=== PATIENT | female | born 1950 | race Two or more races ===

== ENCOUNTER 2017-01-20 23:13 | Emergency (ER) | payer MEDICAID, OTHER ==
[~2017-01-20] VITALS: Ht 170.2 cm; Wt 77.3 kg
[2017-01-20] MEDS ORDERED: SODIUM CHLORIDE 0.9% 500 ML IVB ONE (23:29)
[2017-01-20] MEDS ORDERED: HYDROmorphone HCL 2 MG/ML VL IV ONE (23:30)
[2017-01-20] MEDS ORDERED: ONDANSETRON HCL 4 MG/2 ML VIAL IV ONE (23:30)
[2017-01-21 00:09] LABS: Basophils # (auto) 0.1 uL; Basophils % (auto) 0.5 % (0.0-2.0); Eosinophils # (auto) 0 uL; Eosinophils % (auto) 0.2 % (0.0-7.0); Hemoglobin 10.6 g/dL (12.2-16.2); Lymphocytes # (auto) 1.3 uL; Lymphocytes % (auto) 7.1 % (10.0-50.0); Mean Corpuscular Hemoglobin 25.6 pg (28.0-32.0); Mean Corpuscular Hgb Conc. 32.1 g/dL (32.0-36.0); Mean Corpuscular Volume 79.8 fL (80.0-100.0); Mean Platelet Volume 8.6 fL (6.9-10.8); Monocytes # (auto) 0.4 uL; Monocytes % (auto) 2.2 % (0.0-12.0); Neutrophils # (auto) 16.3 uL; Platelet Count (auto) 308 10^3/uL (140-450); Red Cell Distribution Width 18.2 % (11.8-14.3); White Blood Cell 18.1 10^3/uL (4.4-10.8)
[2017-01-21 00:23] LABS: INR 1.13 (0.9-1.15); Partial Thromboplastin Time 28.2 sec (22.64-33.71); Prothrombin Time 12.3 sec (9.37-12.3)
[2017-01-21 00:27] LABS: Albumin 1.9 g/dL (3.4-5.0); BUN/Creatinine Ratio 18.2; Calcium 7.3 mg/dL (8.5-10.1); Magnesium 1.9 mg/dL (1.6-2.6); Potassium 3.4 mmol/L (3.5-5.1)
[2017-01-21 00:33] LABS: Bilirubin, Total 0.9 mg/dL (0.2-1.0); Total Protein 6.1 g/dL (6.4-8.2)
[2017-01-21] MEDS ORDERED: metroNIDAZOLE 500MG/100ML 100 ML IV ONE (01:45)
[2017-01-21] MEDS ORDERED: PIPERACILLIN-TAZOB 3.375GM 100 ML IV ONE (01:45)
[2017-01-21] MEDS ORDERED: SODIUM CHLORIDE 0.9% 1,000 ML IV ONE (02:00)
[2017-01-21] MEDS ORDERED: HYDROmorphone HCL 2 MG/ML VL IV ONE (02:45)
[2017-01-21 02:48] VITALS: BP 129/76
[2017-01-21 03:26] LABS: Urine Bilirubin Negative (Negative); Urine Blood Negative /uL (Negative); Urine Color Yellow (Yellow); Urine Glucose Normal (Normal); Urine Hyaline Cast FEW /lpf (0 - 2); Urine Ketone Negative (Negative); Urine Mucus FEW (None Seen); Urine Nitrite Negative (Negative); Urine RBC 1 /hpf (0 - 4); Urine Squamous Epithelial Cell FEW /hpf (<5); Urine pH 7.5 (5.0-8.0)
== END 2017-01-21 03:07 | disposition home or self-care (01) ==
LOC: EDBD 23:13 → ER 23:19
DX: K63.1 Perforation of intestine (nontraumatic) (principal); R10.84 Generalized abdominal pain
CPT/HCPCS: 36415; 74176; 76705; 80053; 81001; 82150; 83605; 83690; 83735; 84484; 85025; 85610; 85730; 93005; 96361; 96365; 96368; 96375; 96376; 99291; J1170; J2405; J2543; J3490; J7030

== ENCOUNTER 2018-03-25 13:09 | Emergency (ER) | payer MEDICAID ==
[~2018-03-25] VITALS: Ht 170.2 cm; Wt 77.6 kg
[2018-03-25 13:59] LABS: Basophils # (auto) 0 uL; Eosinophils # (auto) 0.1 uL; Hematocrit 39.6 % (36.0-46.0); Lymphocytes # (auto) 0.3 uL; Monocytes # (auto) 0.4 uL
[2018-03-25 14:02] LABS: Basophils % (auto) 0.6 % (0.0-2.0); Eosinophils % (auto) 2.1 % (0.0-7.0); Hemoglobin 12.9 g/dL (12.2-16.2); Lymphocytes % (auto) 4.2 % (10.0-50.0); Mean Corpuscular Hemoglobin 27.2 pg (28.0-32.0); Mean Corpuscular Hgb Conc. 32.6 g/dL (32.0-36.0); Mean Corpuscular Volume 83.4 fL (80.0-100.0); Monocytes % (auto) 6.9 % (0.0-12.0); Neutrophils # (auto) 5.6 uL; Neutrophils % (auto) 86.2 % (37.0-80.0); Nucleated Red Blood Cells % 0.1 %; Platelet Count (auto) 210 10^3/uL (140-450); Red Blood Cells 4.75 10^6/uL (4.0-5.20); Red Cell Distribution Width 16.3 % (11.8-14.3); White Blood Cell 6.5 10^3/uL (4.4-10.8)
[2018-03-25 14:06] LABS: Calcium 8.1 mg/dL (8.5-10.1); Potassium 3.7 mmol/L (3.5-5.1)
[2018-03-25 14:12] LABS: Albumin 2.8 g/dL (3.4-5.0); BUN/Creatinine Ratio 13.4; Bilirubin, Total 0.3 mg/dL (0.2-1.0); Total Protein 7.1 g/dL (6.4-8.2)
[2018-03-25] MEDS ORDERED: SODIUM CHLORIDE 0.9% 1,000 ML IV ONE (16:33)
[2018-03-25] MEDS ORDERED: FUROSEMIDE 40 MG/4 ML VIAL IV ONE (16:45)
[2018-03-25] MEDS ORDERED: SPIRONOLACTONE 25 MG TAB PO ONE (16:45)
[2018-03-25] MEDS ORDERED: IPRATROPIUM BROM 0.5 MG/2.5ML INH SOL NEB ONE (16:45)
[2018-03-25] MEDS ORDERED: ALBUTEROL SULF 2.5 MG/0.5ML(0.5%) NEB SOLN NEB ONE (16:45)
[2018-03-25 23:27] LABS: INR 1.01 (0.9-1.15); Partial Thromboplastin Time 31.4 sec (23.78-33.04); Prothrombin Time 10.8 sec (9.27-12.13)
[2018-03-26] MEDS ORDERED: IOHEXOL 350 MG/ML 100ML IJ ONE (01:39)
[2018-03-26] MEDS ORDERED: LEVOFLOXACIN 750MG 150 ML IV ONE (05:15)
[2018-03-26 07:28] VITALS: BP 112/62
== END 2018-03-26 08:23 | disposition home or self-care (01) ==
LOC: EDBD 13:09 → EDUNIT# 13:09 → ER 13:16
DX: J18.9 Pneumonia, unspecified organism (principal); R07.89 Other chest pain; J81.1 Chronic pulmonary edema; K74.60 Unspecified cirrhosis of liver; E03.9 Hypothyroidism, unspecified
CPT/HCPCS: 36415; 71045; 71275; 80053; 83735; 83880; 84443; 84484; 85025; 85379; 85610; 85730; 93005; 94640; 94761; 96365; 96366; 96375; 99284; J1940; J1956; J7030; J7611; J7644; Q9967

== ENCOUNTER 2018-04-15 20:34 | Emergency (ER) | payer MEDICAID, OTHER ==
[~2018-04-15] VITALS: Ht 165.1 cm; Wt 79.4 kg
[2018-04-15 22:12] LABS: Eosinophils # (auto) 0.1 uL; Hemoglobin 14.1 g/dL (12.2-16.2); Lymphocytes # (auto) 0.7 uL; Monocytes # (auto) 0.5 uL; Neutrophils # (auto) 9.8 uL
[2018-04-15 22:13] LABS: Basophils # (auto) 0 uL; Basophils % (auto) 0.4 % (0.0-2.0); Eosinophils % (auto) 0.8 % (0.0-7.0); Hematocrit 43.8 % (36.0-46.0); Lymphocytes % (auto) 6.1 % (10.0-50.0); Mean Corpuscular Hemoglobin 26.4 pg (28.0-32.0); Mean Corpuscular Hgb Conc. 32.3 g/dL (32.0-36.0); Mean Corpuscular Volume 81.6 fL (80.0-100.0); Monocytes % (auto) 4.7 % (0.0-12.0); Platelet Count (auto) 272 10^3/uL (140-450); Red Blood Cells 5.37 10^6/uL (4.0-5.20); Red Cell Distribution Width 16.7 % (11.8-14.3); White Blood Cell 11.2 10^3/uL (4.4-10.8)
[2018-04-15 22:28] LABS: Albumin 2.7 g/dL (3.4-5.0); Calcium 7.7 mg/dL (8.5-10.1); Magnesium 1.9 mg/dL (1.6-2.6); Potassium 3.7 mmol/L (3.5-5.1)
[2018-04-15 22:30] LABS: Lactic Acid w/Reflex 2.4 mmol/L (0.4-2.0)
[2018-04-15 22:30] LABS: BUN/Creatinine Ratio 18.2
[2018-04-15 22:34] LABS: Bilirubin, Total 0.4 mg/dL (0.2-1.0)
[2018-04-15 22:38] LABS: INR 1.02 (0.9-1.15); Partial Thromboplastin Time 28.7 sec (23.78-33.04); Prothrombin Time 10.9 sec (9.27-12.13)
[2018-04-16] MEDS ORDERED: IOHEXOL 350 MG/ML 100ML IJ ONE (00:47)
[2018-04-16] MEDS ORDERED: SODIUM CHLORIDE 0.9% 1,000 ML IV ONE (01:30)
[2018-04-16] MEDS ORDERED: ALBUMIN 5% 50 ML IV ONE (03:30)
[2018-04-16] MEDS ORDERED: HYDROCORTISONE SOD SUCC 100 MG/2ML INJ VIAL IV ONE (04:00)
[2018-04-16 07:08] VITALS: BP 110/65
== END 2018-04-16 07:20 | disposition short-term general hospital (02) ==
LOC: EDBD 20:34 → ER 20:41
DX: J44.1 Chronic obstructive pulmonary disease with (acute) exacerbation (principal); D72.829 Elevated white blood cell count, unspecified; R79.89 Other specified abnormal findings of blood chemistry; E07.89 Other specified disorders of thyroid
CPT/HCPCS: 36415; 71045; 71275; 80053; 83605; 83735; 83880; 84484; 85025; 85379; 85610; 85730; 87040; 93005; 96365; 96375; 99285; J1720; J7030; P9041; Q9967

== ENCOUNTER 2018-11-14 15:40 | Emergency (ER) | payer OTHER ==
[~2018-11-14] VITALS: Ht 170.2 cm; Wt 76.7 kg
[2018-11-14] MEDS ORDERED: MORPHINE SULF INJ 2 MG/ML SYRINGE 1ML IV ONE ×2 (16:30→21:30)
[2018-11-14] MEDS ORDERED: ONDANSETRON HCL 4 MG/2 ML VIAL IV ONE (16:30)
[2018-11-14 16:58] LABS: Basophils # (auto) 0 uL; Basophils % (auto) 0.7 % (0.0-2.0); Eosinophils # (auto) 0.4 uL; Eosinophils % (auto) 6.5 % (0.0-7.0); Hematocrit 37.4 % (36.0-46.0); Hemoglobin 11.9 g/dL (12.2-16.2); Lymphocytes # (auto) 0.9 uL; Lymphocytes % (auto) 14.3 % (10.0-50.0); Mean Corpuscular Hemoglobin 25.3 pg (28.0-32.0); Mean Corpuscular Hgb Conc. 31.8 g/dL (32.0-36.0); Mean Corpuscular Volume 79.5 fL (80.0-100.0); Monocytes # (auto) 0.4 uL; Monocytes % (auto) 6.2 % (0.0-12.0); Neutrophils # (auto) 4.6 uL; Neutrophils % (auto) 72.3 % (37.0-80.0); Nucleated Red Blood Cells % 0.1 %; Platelet Count (auto) 206 10^3/uL (140-450); Red Cell Distribution Width 15.5 % (11.8-14.3); White Blood Cell 6.3 10^3/uL (4.4-10.8)
[2018-11-14 17:22] LABS: Anion Gap 9 (5-15); BUN/Creatinine Ratio 13.2; Blood Urea Nitrogen 9 mg/dL (7-18); Calcium 8.7 mg/dL (8.5-10.1); Carbon Dioxide 24 mmol/L (21-32); Chloride 111 mmol/L (98-107); GFR African American 111 mL/min; GFR Non-African American 92 mL/min; Glucose 103 mg/dL (74-106); Potassium 3.9 mmol/L (3.5-5.1); Sodium 144 mmol/L (136-145)
[2018-11-14 17:27] LABS: Alanine Aminotransferase 19 U/L (13-56); Alkaline Phosphatase 126 U/L (45-117); Aspartate Aminotransferase 27 U/L (15-37); Bilirubin, Total 0.2 mg/dL (0.2-1.0); Total Protein 6.6 g/dL (6.4-8.2)
[2018-11-14 18:44] LABS: INR 1.01 (0.9-1.15); Partial Thromboplastin Time 27.9 sec (23.64-32.05)
[2018-11-14] MEDS ORDERED: IOHEXOL 350 MG/ML 100ML IJ ONE (21:03)
[2018-11-14] MEDS ORDERED: PROMETHAZINE HCL 25 MG/ML 1ML IV ONE (21:30)
[2018-11-14] MEDS ORDERED: cefTRIAXone 1GM/50ML D5W 50 ML IV ONE (22:30)
[2018-11-15 03:20] VITALS: BP 117/47
== END 2018-11-15 03:40 | disposition short-term general hospital (02) ==
LOC: EDBD 15:40 → ER 15:40
DX: J18.9 Pneumonia, unspecified organism (principal); K74.60 Unspecified cirrhosis of liver; K21.9 Gastro-esophageal reflux disease without esophagitis; E07.9 Disorder of thyroid, unspecified; Z88.8 Allergy status to other drugs, medicaments and biological substances
CPT/HCPCS: 36415; 71045; 71275; 80053; 83605; 83735; 83880; 84484; 85025; 85379; 85610; 85730; 87040; 93005; 94761; 96365; 96375; 96376; 99291; J0696; J2270; J2405; J2550; Q9967

== ENCOUNTER 2019-02-04 15:59 | Emergency (ER) | payer OTHER ==
[~2019-02-04] VITALS: Ht 154.9 cm; Wt 76.2 kg
[2019-02-04 18:04] LABS: Basophils # (auto) 0 uL; Eosinophils # (auto) 0.1 uL; Hemoglobin 12.4 g/dL (12.2-16.2); Lymphocytes # (auto) 0.8 uL; Monocytes # (auto) 0.2 uL
[2019-02-04 18:06] LABS: Basophils % (auto) 0.6 % (0.0-2.0); Eosinophils % (auto) 0.8 % (0.0-7.0); Hematocrit 39.1 % (36.0-46.0); Lymphocytes % (auto) 8.5 % (10.0-50.0); Mean Corpuscular Hemoglobin 24.9 pg (28.0-32.0); Mean Corpuscular Hgb Conc. 31.8 g/dL (32.0-36.0); Mean Corpuscular Volume 78.5 fL (80.0-100.0); Neutrophils # (auto) 7.9 uL; Neutrophils % (auto) 88.1 % (37.0-80.0); Nucleated Red Blood Cells % 0.1 %; Platelet Count (auto) 205 10^3/uL (140-450); Red Blood Cells 4.98 10^6/uL (4.0-5.20); Red Cell Distribution Width 15.7 % (11.8-14.3); White Blood Cell 8.9 10^3/uL (4.4-10.8)
[2019-02-04 18:13] LABS: Albumin 3.1 g/dL (3.4-5.0); Anion Gap 10 (5-15); BUN/Creatinine Ratio 16.7; Blood Urea Nitrogen 12 mg/dL (7-18); Calcium 8.4 mg/dL (8.5-10.1); Carbon Dioxide 21 mmol/L (21-32); Chloride 109 mmol/L (98-107); GFR African American 104 mL/min; GFR Non-African American 86 mL/min; Glucose 129 mg/dL (74-106); Potassium 3.7 mmol/L (3.5-5.1); Sodium 140 mmol/L (136-145)
[2019-02-04 18:18] LABS: Alanine Aminotransferase 30 U/L (13-56); Alkaline Phosphatase 160 U/L (45-117); Aspartate Aminotransferase 45 U/L (15-37); Bilirubin, Total 0.2 mg/dL (0.2-1.0); Total Protein 7.5 g/dL (6.4-8.2)
[2019-02-04 19:33] LABS: INR 0.97 (0.9-1.15); Partial Thromboplastin Time 29.3 sec (23.64-32.05)
[2019-02-04 19:49] LABS: Urine Bacteria NONE SEEN /hpf (None Seen); Urine Blood Negative /uL (Negative); Urine Mucus FEW (None Seen); Urine Specific Gravity 1.018 (1.001-1.035); Urine WBC 3 /hpf (0 - 5)
[2019-02-04] MEDS ORDERED: cefTRIAXone 1GM/50ML D5W 50 ML IV ONE (20:45)
[2019-02-04 21:14] VITALS: BP 110/50
== END 2019-02-04 21:20 | disposition home or self-care (01) ==
LOC: ER 15:59 → EDBD 15:59 → ER 21:20
DX: J44.1 Chronic obstructive pulmonary disease with (acute) exacerbation (principal); J20.9 Acute bronchitis, unspecified; Z90.710 Acquired absence of both cervix and uterus
CPT/HCPCS: 36415; 71045; 80053; 81001; 83605; 83880; 84484; 85025; 85379; 85610; 85730; 87040; 93005; 96365; 99284; J0696

== ENCOUNTER 2021-01-03 10:22 | Inpatient (IN) | payer OTHER ==
[~2021-01-03] VITALS: Ht 170.2 cm; Wt 75.5 kg
[2021-01-03 11:15] LABS: Basophils # (auto) 0 10 ^3/uL (0-0.2); Basophils % (auto) 0.1 % (0.0-2.0); Eosinophils # (auto) 0.1 10 ^3/uL (0-0.8); Eosinophils % (auto) 0.8 % (0.0-7.0); Hematocrit 39.8 % (36.0-46.0); Hemoglobin 12.3 g/dL (12.2-16.2); Lymphocytes # (auto) 1.6 10 ^3/uL (0.4-5.4); Mean Corpuscular Hemoglobin 23.1 pg (28.0-32.0); Mean Corpuscular Volume 74.7 fL (80.0-100.0); Monocytes # (auto) 0.7 10 ^3/uL (0-1.3); Neutrophils # (auto) 10.1 10 ^3/uL (1.6-8.6); Neutrophils % (auto) 80.1 % (37.0-80.0); Red Blood Cells 5.33 10^6/uL (4.0-5.20); White Blood Cell 12.6 10^3/uL (4.4-10.8)
[2021-01-03 11:35] LABS: Albumin 2.7 g/dL (3.4-5.0); Calcium 7.7 mg/dL (8.5-10.1); Potassium 3.7 mmol/L (3.5-5.1)
[2021-01-03 11:41] LABS: BUN/Creatinine Ratio 28.8; Bilirubin, Total 0.3 mg/dL (0.2-1.0); Total Protein 5.7 g/dL (6.4-8.2)
[2021-01-03 12:00] LABS: Lactic Acid w/Reflex 3.1 mmol/L (0.4-2.0)
[2021-01-03] MEDS ORDERED: cefTRIAXone 1GM/50ML D5W 50 ML IV ONE (14:45)
[2021-01-03] MEDS ORDERED: ACETAMINOPHEN 500 MG TAB PO PRN (15:45)
[2021-01-03] MEDS ORDERED: IPRATROPIUM BROM 0.5 MG/2.5ML INH SOL NEB PRN (15:45)
[2021-01-03] MEDS ORDERED: SODIUM CHLORIDE 0.9% 1,000 ML IV ONE (15:45)
[2021-01-03] MEDS ORDERED: MORPHINE SULFATE INJECTION 2 MG/ML SYRG IV PRN ×2 (15:45)
[2021-01-03] MEDS ORDERED: NITROGLYCERIN 0.4 MG SL TAB SL PRN (15:45)
[2021-01-03] MEDS ORDERED: HYDROcodone-ACET 5/325MG TAB PO PRN (15:45)
[2021-01-03] MEDS ORDERED: ALBUTEROL SULF 2.5 MG/0.5ML(0.5%) NEB SOLN NEB PRN (15:45)
[2021-01-03] MEDS ORDERED: ONDANSETRON HCL 4 MG/2 ML VIAL IV PRN (15:45)
[2021-01-03] MEDS ORDERED: IOHEXOL 300 MG/ML 100ML BOTTLE IJ ONE (15:49)
[2021-01-03] MEDS ORDERED: IPRATROPIUM BROM 0.5 MG/2.5ML INH SOL NEB SCH (18:00)
[2021-01-03] MEDS ORDERED: ALBUTEROL SULF 2.5 MG/0.5ML(0.5%) NEB SOLN NEB SCH (18:00)
[2021-01-03] MEDS: PIPERACILLIN-TAZOB 3.375GM 100 ML IV SCH (22:46)
[2021-01-04] VITALS (8 sets, daily range): BP systolic 109–115; BP diastolic 70–80
[2021-01-04] MEDS ORDERED: ALBUTEROL SULF HFA 90MCG INH 200DOSE IN SCH (06:00)
[2021-01-04] MEDS ORDERED: ALBUTEROL SULF HFA 90MCG INH 200DOSE IN PRN (06:15)
[2021-01-04] MEDS: PIPERACILLIN-TAZOB 3.375GM 100 ML IV SCH ×4 (07:48→21:12)
[2021-01-04] MEDS ORDERED: DEXTROSE (50%) 50ML SYRG IV PRN (10:45)
[2021-01-04] MEDS ORDERED: LORazepam 2MG/ML-1ML VIAL IV PRN ×2 (10:45→22:00)
[2021-01-04] MEDS ORDERED: LORazepam 2MG/ML-1ML VIAL IV ONE ×2 (10:45)
[2021-01-04] MEDS ORDERED: methylPREDNISolone SOD SUCC 125 MG/2 ML VL IV ONE (10:45)
[2021-01-04] MEDS ORDERED: CHOLECALCIFEROL (VITD3) 2,000 UNIT CAP/TAB PO ONE (10:45)
[2021-01-04] MEDS: ACCU-CHEK COMFORT CURVE STRIP VI SCH ×3 (11:53→21:12)
[2021-01-04] MEDS: InsuLIN REG 1unit/0.01ml Soln (100units/ml) SC SCH ×4 (11:55→21:30)
[2021-01-04] MEDS: methylPREDNISolone SOD SUCC 40 MG/ML VL IV SCH ×2 (14:00→21:12)
[2021-01-04] MEDS: BUDESONIDE (INHALATION) 180 MCG IH IN SCH (19:01)
[2021-01-04] MEDS: IPRATROPIUM BROM 0.5 MG/2.5ML INH SOL NEB SCH (19:01)
[2021-01-04] MEDS: ALBUTEROL SULF 2.5 MG/0.5ML(0.5%) NEB SOLN NEB SCH (19:01)
[2021-01-05 05:15] LABS: Basophils # (auto) 0 10 ^3/uL (0-0.2); Eosinophils # (auto) 0 10 ^3/uL (0-0.8); Lymphocytes # (auto) 0.8 10 ^3/uL (0.4-5.4); Monocytes # (auto) 0.1 10 ^3/uL (0-1.3); Neutrophils % (auto) 91.7 % (37.0-80.0); White Blood Cell 10.7 10^3/uL (4.4-10.8)
[2021-01-05] MEDS: methylPREDNISolone SOD SUCC 40 MG/ML VL IV SCH (05:28)
[2021-01-05] MEDS: PIPERACILLIN-TAZOB 3.375GM 100 ML IV SCH ×3 (05:28→21:30)
[2021-01-05 05:30] VITALS: BP 115/77
[2021-01-05 05:41] LABS: Calcium 8.6 mg/dL (8.5-10.1); Potassium 4.9 mmol/L (3.5-5.1)
[2021-01-05 05:43] LABS: BUN/Creatinine Ratio 28.4
[2021-01-05] MEDS: ALBUTEROL SULF 2.5 MG/0.5ML(0.5%) NEB SOLN NEB SCH ×3 (06:06→18:11)
[2021-01-05] MEDS: IPRATROPIUM BROM 0.5 MG/2.5ML INH SOL NEB SCH ×3 (06:07→18:11)
[2021-01-05 06:08] LABS: Hematocrit 40.6 % (36.0-46.0); Hemoglobin 13.3 g/dL (12.2-16.2); Lymphocytes % (auto) 7.3 % (10.0-50.0); Mean Corpuscular Hemoglobin 24.8 pg (28.0-32.0); Mean Corpuscular Hgb Conc. 32.7 g/dL (32.0-36.0); Mean Corpuscular Volume 75.7 fL (80.0-100.0); Neutrophils # (auto) 9.9 10 ^3/uL (1.6-8.6); Nucleated Red Blood Cells % 0.1 %; Red Blood Cells 5.37 10^6/uL (4.0-5.20); Red Cell Distribution Width 18.2 % (11.8-14.3)
[2021-01-05] MEDS: ACCU-CHEK COMFORT CURVE STRIP VI SCH ×4 (06:41→21:30)
[2021-01-05] MEDS: InsuLIN REG 1unit/0.01ml Soln (100units/ml) SC SCH ×4 (06:42→21:53)
[2021-01-05 08:00] VITALS: BP 98/66
[2021-01-05 09:06] VITALS: BP 98/66
[2021-01-05] MEDS: CHOLECALCIFEROL (VITD3) 2,000 UNIT CAP/TAB PO SCH (09:14)
[2021-01-05] MEDS: PANTOPRAZOLE 40 MG TAB PO SCH (09:14)
[2021-01-05] MEDS: BUDESONIDE (INHALATION) 180 MCG IH IN SCH (10:00)
[2021-01-05] MEDS ORDERED: BUDESONIDE (INHALATION) 0.5 MG/2 ML NEB ONE (11:44)
[2021-01-05] MEDS: LORazepam 0.5 MG TAB PO PRN ×2 (12:27→21:49)
[2021-01-05 13:00] VITALS: BP 97/68
[2021-01-05] MEDS ORDERED: traMADol HCL 50 MG TAB PO ONE (13:30)
[2021-01-05 13:44] LABS: Urine Bacteria FEW /hpf (None Seen); Urine Blood 1+ /uL (Negative); Urine Mucus FEW (None Seen); Urine Specific Gravity 1.027 (1.001-1.035); Urine WBC 4 /hpf (0 - 5)
[2021-01-05 16:43] VITALS: BP 93/56
[2021-01-05] MEDS: metFORMIN HYDROCHLORIDE 500 MG TAB PO SCH (17:33)
[2021-01-05] MEDS: Glucerna Carbsteady SHAKE Vanilla 8oz PO SCH (17:45)
[2021-01-05] MEDS ORDERED: Ensure HIGH Protein Chocolate 8oz Bottle PO SCH (18:00)
[2021-01-05] MEDS: BUDESONIDE (INHALATION) 0.5 MG/2 ML NEB NEB SCH (18:11)
[2021-01-05 22:00] VITALS: BP 98/62
[2021-01-06 05:00] VITALS: BP 93/56
[2021-01-06] MEDS: ACCU-CHEK COMFORT CURVE STRIP VI SCH ×4 (05:52→22:20)
[2021-01-06] MEDS: PIPERACILLIN-TAZOB 3.375GM 100 ML IV SCH ×3 (05:53→22:22)
[2021-01-06] MEDS: ALBUTEROL SULF 2.5 MG/0.5ML(0.5%) NEB SOLN NEB SCH ×3 (06:02→18:03)
[2021-01-06] MEDS: IPRATROPIUM BROM 0.5 MG/2.5ML INH SOL NEB SCH ×3 (06:02→18:03)
[2021-01-06] MEDS: InsuLIN REG 1unit/0.01ml Soln (100units/ml) SC SCH ×4 (06:08→22:22)
[2021-01-06] MEDS: BUDESONIDE (INHALATION) 0.5 MG/2 ML NEB NEB SCH ×2 (06:20→18:03)
[2021-01-06 09:00] VITALS: BP 105/66
[2021-01-06] MEDS: predniSONE 20 MG TAB PO SCH (09:10)
[2021-01-06] MEDS: metFORMIN HYDROCHLORIDE 500 MG TAB PO SCH ×2 (09:11→17:56)
[2021-01-06] MEDS: PANTOPRAZOLE 40 MG TAB PO SCH (09:11)
[2021-01-06] MEDS: CHOLECALCIFEROL (VITD3) 2,000 UNIT CAP/TAB PO SCH (09:11)
[2021-01-06] MEDS: LORazepam 0.5 MG TAB PO PRN ×2 (09:15→19:51)
[2021-01-06] MEDS: Glucerna Carbsteady SHAKE Vanilla 8oz PO SCH ×3 (09:15→19:16)
[2021-01-06 13:00] VITALS: BP 96/66
[2021-01-06] MEDS ORDERED: PRE5T PO (15:49)
[2021-01-06] MEDS ORDERED: INSREG3 IV (15:49)
[2021-01-06] MEDS ORDERED: OMEP20TA PO (15:50)
[2021-01-06] MEDS ORDERED: ALBU108A5 IN (15:50)
[2021-01-06] MEDS ORDERED: MYCO500T PO (15:50)
[2021-01-06] MEDS ORDERED: GUAI100S6 PO (15:50)
[2021-01-06] MEDS ORDERED: METF-370 PO (15:50)
[2021-01-06] MEDS ORDERED: FLUT250M2 INH (15:50)
[2021-01-06] MEDS ORDERED: LEVO50TA7 PO (15:50)
[2021-01-06] MEDS ORDERED: URSO1TAB7 PO (15:50)
[2021-01-06] MEDS ORDERED: IPRIH INH (15:50)
[2021-01-06] MEDS ORDERED: TACR1GRA PO (15:50)
[2021-01-06] MEDS ORDERED: BENZ100C97 PO (15:50)
[2021-01-06] MEDS ORDERED: NALO4SPR2 (15:50)
[2021-01-06 17:12] VITALS: BP 90/60
[2021-01-06 22:00] VITALS: BP 108/72
[2021-01-06] MEDS: MYCOPHENOLATE 500 MG TAB PO SCH (22:22)
[2021-01-06] MEDS: TACROLIMUS 1 MG CAP PO SCH (22:22)
[2021-01-07 05:00] VITALS: BP 103/71
[2021-01-07 05:12] LABS: Basophils # (auto) 0 10 ^3/uL (0-0.2); Basophils % (auto) 0.1 % (0.0-2.0); Eosinophils # (auto) 0.1 10 ^3/uL (0-0.8); Eosinophils % (auto) 0.4 % (0.0-7.0); Hematocrit 41.9 % (36.0-46.0); Hemoglobin 13.2 g/dL (12.2-16.2); Lymphocytes # (auto) 1.7 10 ^3/uL (0.4-5.4); Mean Corpuscular Hemoglobin 23.6 pg (28.0-32.0); Mean Corpuscular Hgb Conc. 31.6 g/dL (32.0-36.0); Mean Corpuscular Volume 74.9 fL (80.0-100.0); Monocytes # (auto) 0.8 10 ^3/uL (0-1.3); Monocytes % (auto) 4.8 % (0.0-12.0); Neutrophils # (auto) 13.2 10 ^3/uL (1.6-8.6); Neutrophils % (auto) 83.7 % (37.0-80.0); Red Cell Distribution Width 18.2 % (11.8-14.3); White Blood Cell 15.8 10^3/uL (4.4-10.8)
[2021-01-07 05:31] LABS: Potassium 4.2 mmol/L (3.5-5.1)
[2021-01-07 05:42] LABS: Albumin 2.7 g/dL (3.4-5.0); BUN/Creatinine Ratio 30.2; Bilirubin, Total 0.3 mg/dL (0.2-1.0); Calcium 9.1 mg/dL (8.5-10.1); Total Protein 5.9 g/dL (6.4-8.2)
[2021-01-07] MEDS: PIPERACILLIN-TAZOB 3.375GM 100 ML IV SCH ×3 (06:05→22:20)
[2021-01-07] MEDS: BUDESONIDE (INHALATION) 0.5 MG/2 ML NEB NEB SCH ×2 (06:06→18:19)
[2021-01-07] MEDS: ALBUTEROL SULF 2.5 MG/0.5ML(0.5%) NEB SOLN NEB SCH ×3 (06:06→18:19)
[2021-01-07] MEDS: IPRATROPIUM BROM 0.5 MG/2.5ML INH SOL NEB SCH ×3 (06:06→18:19)
[2021-01-07] MEDS: ACCU-CHEK COMFORT CURVE STRIP VI SCH ×4 (06:14→22:00)
[2021-01-07] MEDS: InsuLIN REG 1unit/0.01ml Soln (100units/ml) SC SCH ×4 (06:39→22:20)
[2021-01-07] MEDS: metFORMIN HYDROCHLORIDE 500 MG TAB PO SCH ×2 (08:59→18:15)
[2021-01-07] MEDS: PANTOPRAZOLE 40 MG TAB PO SCH (08:59)
[2021-01-07] MEDS: predniSONE 20 MG TAB PO SCH (08:59)
[2021-01-07 09:00] VITALS: BP 93/62
[2021-01-07] MEDS: TACROLIMUS 1 MG CAP PO SCH ×2 (09:00→22:00)
[2021-01-07] MEDS: CHOLECALCIFEROL (VITD3) 2,000 UNIT CAP/TAB PO SCH (09:00)
[2021-01-07] MEDS: MYCOPHENOLATE 500 MG TAB PO SCH ×2 (09:00→22:00)
[2021-01-07] MEDS: Glucerna Carbsteady SHAKE Vanilla 8oz PO SCH ×3 (09:01→18:15)
[2021-01-07] MEDS: LORazepam 0.5 MG TAB PO PRN ×2 (09:06→19:29)
[2021-01-07 12:48] VITALS: BP 100/71
[2021-01-07] MEDS ORDERED: VANCOMYCIN PER PHARMACY 0 MG IV SCH (13:45)
[2021-01-07] MEDS: VANCOMYCIN 750mg/250ml 250 ML IV SCH (15:52)
[2021-01-07 17:01] VITALS: BP 89/58
[2021-01-07 23:37] VITALS: BP 107/66
[2021-01-08 02:15] LABS: Hemoglobin 13.2 g/dL (12.2-16.2); White Blood Cell 15.2 10^3/uL (4.4-10.8)
[2021-01-08 02:17] LABS: Basophils # (auto) 0 10 ^3/uL (0-0.2); Basophils % (auto) 0.1 % (0.0-2.0); Eosinophils # (auto) 0 10 ^3/uL (0-0.8); Eosinophils % (auto) 0.2 % (0.0-7.0); Hematocrit 41.3 % (36.0-46.0); Lymphocytes # (auto) 1.2 10 ^3/uL (0.4-5.4); Lymphocytes % (auto) 7.9 % (10.0-50.0); Mean Corpuscular Hemoglobin 24.2 pg (28.0-32.0); Mean Corpuscular Volume 75.5 fL (80.0-100.0); Monocytes # (auto) 0.6 10 ^3/uL (0-1.3); Monocytes % (auto) 4.3 % (0.0-12.0); Neutrophils # (auto) 13.3 10 ^3/uL (1.6-8.6); Neutrophils % (auto) 87.5 % (37.0-80.0); Red Blood Cells 5.47 10^6/uL (4.0-5.20); Red Cell Distribution Width 18.3 % (11.8-14.3)
[2021-01-08] MEDS: VANCOMYCIN 750mg/250ml 250 ML IV SCH ×2 (03:00→15:00)
[2021-01-08 05:14] LABS: Basophils # (auto) 0 10 ^3/uL (0-0.2); Lymphocytes # (auto) 1.4 10 ^3/uL (0.4-5.4); Lymphocytes % (auto) 10.3 % (10.0-50.0); Monocytes % (auto) 4.7 % (0.0-12.0); Nucleated Red Blood Cells % 0.1 %; White Blood Cell 13.8 10^3/uL (4.4-10.8)
[2021-01-08 05:21] VITALS: BP 119/80
[2021-01-08 05:21] LABS: Eosinophils # (auto) 0 10 ^3/uL (0-0.8); Eosinophils % (auto) 0.3 % (0.0-7.0); Hematocrit 41.1 % (36.0-46.0); Mean Corpuscular Hemoglobin 24.1 pg (28.0-32.0); Mean Corpuscular Hgb Conc. 31.6 g/dL (32.0-36.0); Mean Corpuscular Volume 76.2 fL (80.0-100.0); Monocytes # (auto) 0.6 10 ^3/uL (0-1.3); Neutrophils # (auto) 11.7 10 ^3/uL (1.6-8.6); Neutrophils % (auto) 84.7 % (37.0-80.0); Red Blood Cells 5.39 10^6/uL (4.0-5.20)
[2021-01-08 05:26] LABS: BUN/Creatinine Ratio 27.4; Calcium 8.5 mg/dL (8.5-10.1); Potassium 4.1 mmol/L (3.5-5.1)
[2021-01-08] MEDS: BUDESONIDE (INHALATION) 0.5 MG/2 ML NEB NEB SCH ×2 (06:00→18:31)
[2021-01-08] MEDS: PIPERACILLIN-TAZOB 3.375GM 100 ML IV SCH ×2 (06:00→17:00)
[2021-01-08] MEDS: ALBUTEROL SULF 2.5 MG/0.5ML(0.5%) NEB SOLN NEB SCH ×3 (06:01→18:31)
[2021-01-08] MEDS: IPRATROPIUM BROM 0.5 MG/2.5ML INH SOL NEB SCH ×3 (06:01→18:31)
[2021-01-08] MEDS: ACCU-CHEK COMFORT CURVE STRIP VI SCH ×3 (06:28→18:55)
[2021-01-08] MEDS: InsuLIN REG 1unit/0.01ml Soln (100units/ml) SC SCH ×3 (06:28→18:55)
[2021-01-08 08:30] VITALS: BP 96/68
[2021-01-08] MEDS: metFORMIN HYDROCHLORIDE 500 MG TAB PO SCH ×2 (08:49→18:55)
[2021-01-08] MEDS: Glucerna Carbsteady SHAKE Vanilla 8oz PO SCH ×3 (08:49→17:55)
[2021-01-08 09:00] VITALS: BP 98/71
[2021-01-08] MEDS: predniSONE 20 MG TAB PO SCH (09:11)
[2021-01-08] MEDS: CHOLECALCIFEROL (VITD3) 2,000 UNIT CAP/TAB PO SCH (09:12)
[2021-01-08] MEDS: PANTOPRAZOLE 40 MG TAB PO SCH (09:12)
[2021-01-08] MEDS: TACROLIMUS 1 MG CAP PO SCH (11:58)
[2021-01-08] MEDS: MYCOPHENOLATE 500 MG TAB PO SCH (11:58)
[2021-01-08 13:00] VITALS: BP 112/74
[2021-01-08 16:20] VITALS: BP 112/74
[2021-01-08 17:00] VITALS: BP 117/77
== END 2021-01-08 20:34 | disposition home health service (06) | DRG 871 ==
LOC: EDBD 10:22 → ER 10:22 → TELE 15:38 → TELE-EAST 01-04 04:44 → TELE-CENTR 01-04 15:28
PROVIDERS: ADMIT Nurse Practitioner Acute Care; ATTEND Internal Medicine
DX: A41.9 Sepsis, unspecified organism (principal); J96.00 Acute respiratory failure, unspecified whether with hypoxia or hypercapnia; E44.0 Moderate protein-calorie malnutrition; J84.9 Interstitial pulmonary disease, unspecified; E03.9 Hypothyroidism, unspecified; F32.9 Major depressive disorder, single episode, unspecified; E11.65 Type 2 diabetes mellitus with hyperglycemia; K21.9 Gastro-esophageal reflux disease without esophagitis; R16.1 Splenomegaly, not elsewhere classified; Z20.822 Contact with and (suspected) exposure to COVID-19; F41.9 Anxiety disorder, unspecified; I48.91 Unspecified atrial fibrillation; K74.60 Unspecified cirrhosis of liver; Z87.01 Personal history of pneumonia (recurrent); Z90.710 Acquired absence of both cervix and uterus; Z88.1 Allergy status to other antibiotic agents; Z68.26 Body mass index [BMI] 26.0-26.9, adult
CPT/HCPCS: 36415; 71045; 71250; 80048; 80053; 81001; 82728; 82962; 83036; 83605; 84443; 84484; 85025; 85652; 86141; 87040; 87081; 87426; 93005; 94640; 96365; 97110; 97116; 97530; 99291; G0378; J0696; J1815; J2543; J7507; J7517

== ENCOUNTER 2022-01-20 17:21 | Inpatient (IN) | payer OTHER ==
[~2022-01-20] VITALS: Ht 160 cm; Wt 66.6 kg
[~2022-01-20 17:21] MED LIST: ALBU108A5 IN; BENZ100C97 PO; FLUT250M2 INH; GUAI100S6 PO; INSREG3 IV; IPRIH INH; LEVO50TA7 PO; METF-370 PO; MYCO500T PO; NALO4SPR2; OMEP20TA PO; PRE5T PO; TACR1GRA PO; URSO1TAB7 PO
[2022-01-20] MEDS ORDERED: SODIUM CHLORIDE 0.9% 1,000 ML IV ONE (17:30)
[2022-01-20] MEDS ORDERED: ACETAMINOPHEN 500 MG TAB PO ONE (18:15)
[2022-01-20] MEDS ORDERED: CEFEPIME 1GM/ 50ML 50 ML IV ONE (18:30)
[2022-01-20] MEDS ORDERED: VANCOMYCIN 1GM/250ML 250 ML IV ONE (18:30)
[2022-01-20] MEDS ORDERED: ALBUTEROL SULF 2.5 MG/0.5ML(0.5%) NEB SOLN NEB ONE (18:30)
[2022-01-20] MEDS ORDERED: methylPREDNISolone SOD SUCC 125 MG/2 ML VL IV ONE (18:30)
[2022-01-20 18:39] LABS: Basophils # (auto) 0 10 ^3/uL (0-0.2); Basophils % (auto) 0.3 % (0.0-2.0); Eosinophils # (auto) 0.3 10 ^3/uL (0-0.8); Eosinophils % (auto) 1.4 % (0.0-7.0); Hematocrit 40.5 % (36.0-46.0); Hemoglobin 12.5 g/dL (12.2-16.2); Lymphocytes # (auto) 0.7 10 ^3/uL (0.4-5.4); Lymphocytes % (auto) 3.7 % (10.0-50.0); Mean Corpuscular Hgb Conc. 30.9 g/dL (32.0-36.0); Mean Corpuscular Volume 77.7 fL (80.0-100.0); Monocytes # (auto) 0.3 10 ^3/uL (0-1.3); Monocytes % (auto) 1.4 % (0.0-12.0); Neutrophils # (auto) 17.2 10 ^3/uL (1.6-8.6); Neutrophils % (auto) 93.2 % (37.0-80.0); Red Blood Cells 5.22 10^6/uL (4.0-5.20); Red Cell Distribution Width 17.4 % (11.8-14.3); White Blood Cell 18.4 10^3/uL (4.4-10.8)
[2022-01-20] MEDS ORDERED: LORazepam 2MG/ML-1ML VIAL IM ONE (18:45)
[2022-01-20 18:53] LABS: Albumin 2.9 g/dL (3.4-5.0); BUN/Creatinine Ratio 12.4; Calcium 7.7 mg/dL (8.5-10.1); Potassium 4.1 mmol/L (3.5-5.1)
[2022-01-20 18:54] LABS: Lactic Acid w/Reflex 3.9 mmol/L (0.4-2.0)
[2022-01-20] MEDS ORDERED: LORazepam 2MG/ML-1ML VIAL IV ONE (18:55)
[2022-01-20 19:01] LABS: INR 1.03 (0.9-1.15); Partial Thromboplastin Time 25.4 sec (24.6-33.4)
[2022-01-20 19:02] LABS: Bilirubin, Total 0.8 mg/dL (0.2-1.0); Total Protein 6.4 g/dL (6.4-8.2)
[2022-01-20] MEDS ORDERED: DEXTROSE (50%) 50ML SYRG IV PRN (21:30)
[2022-01-20] MEDS ORDERED: ONDANSETRON HCL 4 MG/2 ML VIAL IV PRN (21:30)
[2022-01-20] MEDS ORDERED: VANCOMYCIN PER PHARMACY 0 MG IV SCH (21:30)
[2022-01-20] MEDS ORDERED: SODIUM CHLORIDE 0.9% 1,000 ML IV SCH (21:30)
[2022-01-20] MEDS ORDERED: ALBUMIN 5% 250 ML IV ONE (21:30)
[2022-01-20] MEDS ORDERED: MORPHINE SULFATE INJ 2 MG/ml SYRG IV PRN (21:30)
[2022-01-20] MEDS ORDERED: NITROGLYCERIN 0.4 MG SL TAB SL PRN (21:30)
[2022-01-20 21:48] LABS: Urine Bacteria NONE SEEN /hpf (None Seen); Urine Blood 3+ /uL (Negative); Urine Budding Yeast MANY /hpf (None Seen); Urine Mucus FEW (None Seen); Urine Specific Gravity 1.013 (1.001-1.035); Urine WBC 523 /hpf (0 - 5); Urine WBC Clumps PRESENT /hpf (None Seen)
[2022-01-20] MEDS: methylPREDNISolone SOD SUCC 125 MG/2 ML VL IV SCH (22:00)
[2022-01-20] MEDS: PIPERACILLIN-TAZOB 3.375GM 100 ML IV SCH (22:00)
[2022-01-20 23:09] LABS: Lactic Acid w/Reflex 2.2 mmol/L (0.4-2.0)
[2022-01-20] MEDS: ACCU-CHEK COMFORT CURVE STRIP VI SCH (23:59)
[2022-01-21] VITALS (65 sets, daily range): BP systolic 84–117; BP diastolic 48–73
[2022-01-21] MEDS: InsuLIN REG 1unit/0.01ml Soln (100units/ml) SC SCH ×6 (00:03→20:00)
[2022-01-21 05:26] LABS: Basophils # (auto) 0 10 ^3/uL (0-0.2); Basophils % (auto) 0.1 % (0.0-2.0); Eosinophils # (auto) 0 10 ^3/uL (0-0.8); Hemoglobin 10.3 g/dL (12.2-16.2); Lymphocytes # (auto) 0.4 10 ^3/uL (0.4-5.4); Mean Corpuscular Hemoglobin 24.8 pg (28.0-32.0); Monocytes # (auto) 0.1 10 ^3/uL (0-1.3)
[2022-01-21 05:30] LABS: Hematocrit 33.1 % (36.0-46.0); Mean Corpuscular Hgb Conc. 31.1 g/dL (32.0-36.0); Mean Corpuscular Volume 79.8 fL (80.0-100.0); Neutrophils # (auto) 11.8 10 ^3/uL (1.6-8.6); Neutrophils % (auto) 95.9 % (37.0-80.0); Red Blood Cells 4.15 10^6/uL (4.0-5.20); Red Cell Distribution Width 17.3 % (11.8-14.3); White Blood Cell 12.3 10^3/uL (4.4-10.8)
[2022-01-21] MEDS: ACCU-CHEK COMFORT CURVE STRIP VI SCH ×5 (05:34→20:00)
[2022-01-21 05:48] LABS: Albumin 2.6 g/dL (3.4-5.0); Calcium 7.1 mg/dL (8.5-10.1); Potassium 4.7 mmol/L (3.5-5.1)
[2022-01-21 05:51] LABS: BUN/Creatinine Ratio 13.5
[2022-01-21 05:54] LABS: Bilirubin, Total 0.5 mg/dL (0.2-1.0); Total Protein 5.4 g/dL (6.4-8.2)
[2022-01-21] MEDS ORDERED: ACCU-CHEK COMFORT CURVE STRIP VI SCH (06:00)
[2022-01-21] MEDS ORDERED: InsuLIN REG 1unit/0.01ml Soln (100units/ml) SC SCH (06:00)
[2022-01-21] MEDS: PIPERACILLIN-TAZOB 3.375GM 100 ML IV SCH (06:05)
[2022-01-21] MEDS ORDERED: DEXTROSE (50%) 50ML SYRG IV PRN (06:15)
[2022-01-21] MEDS: IPRATROPIUM BROM 0.5 MG/2.5ML INH SOL NEB SCH ×3 (06:31→19:21)
[2022-01-21] MEDS: ALBUTEROL SULF 2.5 MG/0.5ML(0.5%) NEB SOLN NEB SCH ×3 (06:31→19:21)
[2022-01-21] MEDS: PANTOPRAZOLE 40 MG TAB PO SCH (09:35)
[2022-01-21] MEDS: ACETAMINOPHEN 325 MG TAB PO PRN ×2 (09:35→16:09)
[2022-01-21] MEDS: methylPREDNISolone SOD SUCC 125 MG/2 ML VL IV SCH (09:36)
[2022-01-21] MEDS ORDERED: ENOXAPARIN SOD 40 MG/0.4 ML SYRINGE SC SCH (10:00)
[2022-01-21] MEDS ORDERED: POLYETHYLENE GLYCOL 17 GM PWDR PO ONE (11:15)
[2022-01-21] MEDS ORDERED: DOCUSATE SOD 100 MG CAP PO PRN (11:15)
[2022-01-21] MEDS: Glucerna Carbsteady SHAKE Vanilla 8oz PO SCH ×2 (12:00→18:00)
[2022-01-21] MEDS: MEROPENEM 1GM IVPB 100 ML IV SCH (14:00)
[2022-01-21] MEDS ORDERED: LORazepam 0.5 MG TAB PO ONE (15:15)
[2022-01-21] MEDS ORDERED: FUROSEMIDE 20 MG/2 ML VIAL IV ONE (15:15)
[2022-01-21] MEDS ORDERED: SODIUM BICARBONATE 50ML VIAL 50 ML in SOD CHL 0.45% 1,000 ML IV SCH (15:45)
[2022-01-21] MEDS ORDERED: SODIUM BICARBONATE 8.4 % INJ 50ML VIAL IV ONE (15:45)
[2022-01-22] VITALS (21 sets, daily range): BP systolic 98–132; BP diastolic 55–85
[2022-01-22] MEDS: MEROPENEM 1GM IVPB 100 ML IV SCH ×3 (02:00→22:00)
[2022-01-22] MEDS: ACCU-CHEK COMFORT CURVE STRIP VI SCH ×6 (04:00→20:00)
[2022-01-22] MEDS: InsuLIN REG 1unit/0.01ml Soln (100units/ml) SC SCH ×6 (04:00→20:00)
[2022-01-22] MEDS: IPRATROPIUM BROM 0.5 MG/2.5ML INH SOL NEB SCH ×3 (05:43→21:39)
[2022-01-22] MEDS: ALBUTEROL SULF 2.5 MG/0.5ML(0.5%) NEB SOLN NEB SCH ×3 (05:43→21:39)
[2022-01-22 06:06] LABS: Basophils # (auto) 0 10 ^3/uL (0-0.2); Basophils % (auto) 0.2 % (0.0-2.0); Eosinophils # (auto) 0 10 ^3/uL (0-0.8); Hematocrit 28.7 % (36.0-46.0); Hemoglobin 9.3 g/dL (12.2-16.2); Lymphocytes # (auto) 0.7 10 ^3/uL (0.4-5.4); Lymphocytes % (auto) 5.2 % (10.0-50.0); Mean Corpuscular Hemoglobin 24.5 pg (28.0-32.0); Mean Corpuscular Hgb Conc. 32.4 g/dL (32.0-36.0); Mean Corpuscular Volume 75.6 fL (80.0-100.0); Monocytes # (auto) 0.3 10 ^3/uL (0-1.3); Monocytes % (auto) 1.9 % (0.0-12.0); Neutrophils # (auto) 12.4 10 ^3/uL (1.6-8.6); Neutrophils % (auto) 92.7 % (37.0-80.0); Red Blood Cells 3.79 10^6/uL (4.0-5.20); Red Cell Distribution Width 17.8 % (11.8-14.3); White Blood Cell 13.4 10^3/uL (4.4-10.8)
[2022-01-22] MEDS: LEVOTHYROXINE SODIUM 50 MCG TAB PO SCH (07:00)
[2022-01-22 07:10] LABS: BUN/Creatinine Ratio 25.3; Calcium 7.4 mg/dL (8.5-10.1)
[2022-01-22] MEDS: Glucerna Carbsteady SHAKE Vanilla 8oz PO SCH ×3 (08:14→18:00)
[2022-01-22] MEDS ORDERED: ENOXAPARIN SOD 30 MG/0.3 ML SYRINGE SC SCH (10:00)
[2022-01-22] MEDS ORDERED: MICAFUNGIN SODIUM 100 MG in SODIUM CHL 0.9% 100 ML IV ONE (12:15)
[2022-01-22] MEDS ORDERED: LORazepam 2MG/ML-1ML VIAL IV PRN (12:15)
[2022-01-22] MEDS: predniSONE 5 MG TAB PO SCH (12:44)
[2022-01-22] MEDS: PANTOPRAZOLE 40 MG TAB PO SCH (12:44)
[2022-01-22] MEDS ORDERED: LACTULOSE 20Gm/30ML SOLN PO PRN (16:45)
[2022-01-22] MEDS ORDERED: FLEET ENEMA(ADULT) 135 ML PR ONE (16:45)
[2022-01-23] VITALS (12 sets, daily range): BP systolic 103–127; BP diastolic 59–74
[2022-01-23] MEDS: InsuLIN REG 1unit/0.01ml Soln (100units/ml) SC SCH ×6 (04:00→21:58)
[2022-01-23] MEDS: ACCU-CHEK COMFORT CURVE STRIP VI SCH ×6 (04:00→21:48)
[2022-01-23 05:15] LABS: Basophils # (auto) 0 10 ^3/uL (0-0.2); Basophils % (auto) 0.1 % (0.0-2.0); Eosinophils # (auto) 0 10 ^3/uL (0-0.8); Eosinophils % (auto) 0.3 % (0.0-7.0); Hemoglobin 9.3 g/dL (12.2-16.2); Lymphocytes % (auto) 14.6 % (10.0-50.0)
[2022-01-23 05:22] LABS: Hematocrit 29.7 % (36.0-46.0); Lymphocytes # (auto) 1.6 10 ^3/uL (0.4-5.4); Mean Corpuscular Hemoglobin 23.8 pg (28.0-32.0); Mean Corpuscular Hgb Conc. 31.1 g/dL (32.0-36.0); Mean Corpuscular Volume 76.5 fL (80.0-100.0); Monocytes # (auto) 0.4 10 ^3/uL (0-1.3); Monocytes % (auto) 3.8 % (0.0-12.0); Neutrophils # (auto) 9.1 10 ^3/uL (1.6-8.6); Neutrophils % (auto) 81.2 % (37.0-80.0); Red Blood Cells 3.89 10^6/uL (4.0-5.20); Red Cell Distribution Width 17.4 % (11.8-14.3); White Blood Cell 11.2 10^3/uL (4.4-10.8)
[2022-01-23 05:34] LABS: Albumin 2.2 g/dL (3.4-5.0); Calcium 7.7 mg/dL (8.5-10.1); Potassium 4.5 mmol/L (3.5-5.1)
[2022-01-23 05:38] LABS: BUN/Creatinine Ratio 25.6; Bilirubin, Total 0.4 mg/dL (0.2-1.0); Total Protein 4.6 g/dL (6.4-8.2)
[2022-01-23] MEDS: MEROPENEM 1GM IVPB 100 ML IV SCH ×3 (06:00→21:31)
[2022-01-23] MEDS: IPRATROPIUM BROM 0.5 MG/2.5ML INH SOL NEB SCH ×3 (06:13→19:01)
[2022-01-23] MEDS: ALBUTEROL SULF 2.5 MG/0.5ML(0.5%) NEB SOLN NEB SCH ×3 (06:13→19:01)
[2022-01-23] MEDS: LEVOTHYROXINE SODIUM 50 MCG TAB PO SCH (06:52)
[2022-01-23] MEDS: Glucerna Carbsteady SHAKE Vanilla 8oz PO SCH ×3 (08:00→18:02)
[2022-01-23] MEDS: predniSONE 5 MG TAB PO SCH (10:10)
[2022-01-23] MEDS: PANTOPRAZOLE 40 MG TAB PO SCH (10:10)
[2022-01-23] MEDS: ENOXAPARIN SOD 40 MG/0.4 ML SYRINGE SC SCH (10:11)
[2022-01-23] MEDS: MICAFUNGIN SODIUM 100 MG in SODIUM CHL 0.9% 100 ML IV SCH (10:14)
[2022-01-23] MEDS ORDERED: DEXTROSE (50%) 50ML SYRG IV PRN (11:15)
[2022-01-23] MEDS: URSODIOL 250 MG TABLET PO SCH ×2 (11:17→21:48)
[2022-01-23] MEDS: LORazepam 0.5 MG TAB PO PRN (18:28)
[2022-01-23] MEDS: ACETAMINOPHEN 325 MG TAB PO PRN (21:31)
[2022-01-24 05:15] LABS: Basophils # (auto) 0 10 ^3/uL (0-0.2); Eosinophils # (auto) 0.2 10 ^3/uL (0-0.8); Eosinophils % (auto) 2.9 % (0.0-7.0); Lymphocytes # (auto) 1.2 10 ^3/uL (0.4-5.4); Lymphocytes % (auto) 18.8 % (10.0-50.0); Monocytes # (auto) 0.4 10 ^3/uL (0-1.3); Monocytes % (auto) 6.6 % (0.0-12.0); Nucleated Red Blood Cells % 0.1 %; White Blood Cell 6.5 10^3/uL (4.4-10.8)
[2022-01-24 05:17] LABS: Basophils % (auto) 0.1 % (0.0-2.0); Hematocrit 31.6 % (36.0-46.0); Hemoglobin 10.1 g/dL (12.2-16.2); Mean Corpuscular Hemoglobin 24.4 pg (28.0-32.0); Mean Corpuscular Volume 76.2 fL (80.0-100.0); Neutrophils # (auto) 4.7 10 ^3/uL (1.6-8.6); Neutrophils % (auto) 71.6 % (37.0-80.0); Red Blood Cells 4.15 10^6/uL (4.0-5.20); Red Cell Distribution Width 17.5 % (11.8-14.3)
[2022-01-24] MEDS: ALBUTEROL SULF 2.5 MG/0.5ML(0.5%) NEB SOLN NEB SCH ×3 (06:10→19:13)
[2022-01-24] MEDS: IPRATROPIUM BROM 0.5 MG/2.5ML INH SOL NEB SCH ×3 (06:10→19:13)
[2022-01-24] MEDS: MEROPENEM 1GM IVPB 100 ML IV SCH (06:21)
[2022-01-24] MEDS: ACCU-CHEK COMFORT CURVE STRIP VI SCH ×4 (06:39→21:03)
[2022-01-24] MEDS: LEVOTHYROXINE SODIUM 50 MCG TAB PO SCH (06:40)
[2022-01-24] MEDS: InsuLIN REG 1unit/0.01ml Soln (100units/ml) SC SCH ×4 (06:47→21:04)
[2022-01-24 08:00] VITALS: BP 127/82
[2022-01-24] MEDS: Glucerna Carbsteady SHAKE Vanilla 8oz PO SCH ×3 (08:00→18:27)
[2022-01-24 10:00] VITALS: BP 114/81
[2022-01-24] MEDS: MICAFUNGIN SODIUM 100 MG in SODIUM CHL 0.9% 100 ML IV SCH (10:00)
[2022-01-24] MEDS: ENOXAPARIN SOD 40 MG/0.4 ML SYRINGE SC SCH (10:08)
[2022-01-24] MEDS: PANTOPRAZOLE 40 MG TAB PO SCH (10:08)
[2022-01-24] MEDS: predniSONE 5 MG TAB PO SCH (10:08)
[2022-01-24] MEDS: URSODIOL 250 MG TABLET PO SCH ×2 (10:09→21:03)
[2022-01-24 12:00] VITALS: BP 132/81
[2022-01-24 14:00] VITALS: BP 113/71
[2022-01-24] MEDS: ACETAMINOPHEN 325 MG TAB PO PRN (14:15)
[2022-01-24 18:00] VITALS: BP 133/77
[2022-01-24 20:00] VITALS: BP 118/72
[2022-01-24] MEDS: LORazepam 0.5 MG TAB PO PRN (20:14)
[2022-01-25] MEDS ORDERED: cefTRIAXone 1GM/50ML D5W 50 ML IV SCH (09:00)
== END 2022-01-24 22:21 | disposition short-term general hospital (02) | DRG 871 ==
LOC: ER 17:21 → EDBD 17:21 → TELE 21:27 → DOU IN ICU 23:58
PROVIDERS: ADMIT Nurse Practitioner; ATTEND Internal Medicine
PROC: 5A09357 Assistance with Respiratory Ventilation, Less than 24 Consecutive Hours, Continuous Positive Airway Pressure (ICD-10-PCS; principal; 2022-01-20)
DX: A41.51 Sepsis due to Escherichia coli [E. coli] (principal); E43 Unspecified severe protein-calorie malnutrition; J18.9 Pneumonia, unspecified organism; J96.20 Acute and chronic respiratory failure, unspecified whether with hypoxia or hypercapnia; N17.0 Acute kidney failure with tubular necrosis; N39.0 Urinary tract infection, site not specified; I47.1 Supraventricular tachycardia; R65.20 Severe sepsis without septic shock; E11.9 Type 2 diabetes mellitus without complications; K74.60 Unspecified cirrhosis of liver; D69.59 Other secondary thrombocytopenia; Z20.822 Contact with and (suspected) exposure to COVID-19; E03.9 Hypothyroidism, unspecified; F41.9 Anxiety disorder, unspecified; Z87.442 Personal history of urinary calculi; Z90.710 Acquired absence of both cervix and uterus; Z68.27 Body mass index [BMI] 27.0-27.9, adult; Z88.8 Allergy status to other drugs, medicaments and biological substances
CPT/HCPCS: 36415; 36600; 71045; 74176; 80048; 80053; 81001; 82805; 82962; 83036; 83605; 83880; 84443; 84484; 85025; 85379; 85610; 85730; 87040; 87077; 87081; 87086; 87088; 87186; 93005; 94640; 94660; 96365; 96368; 96372; 96375; 97110; 97116; 97163; 97530; 99291; G0378; J1815; J2185; J2248; J2543

== ENCOUNTER 2022-02-10 13:53 | Emergency (ER) | payer OTHER ==
[~2022-02-10] VITALS: Ht 170.2 cm; Wt 63.0 kg
[2022-02-10] MEDS ORDERED: ACETAMINOPHEN 500 MG TAB PO ONE (14:30)
[2022-02-10] MEDS ORDERED: SODIUM CHLORIDE 0.9% 1,000 ML IV ONE (14:30)
[2022-02-10 15:09] LABS: Hematocrit 42.8 % (36.0-46.0); Hemoglobin 13.2 g/dL (12.2-16.2); Mean Corpuscular Hemoglobin 23.8 pg (28.0-32.0); Mean Corpuscular Hgb Conc. 30.9 g/dL (32.0-36.0); Red Blood Cells 5.56 10^6/uL (4.0-5.20); Red Cell Distribution Width 17.3 % (11.8-14.3); White Blood Cell 14.8 10^3/uL (4.4-10.8)
[2022-02-10 15:11] LABS: Basophils % (manual) 0 (0.0-2.0); Blast Cells 0; Eosinophils % (manual) 0 (0-7); Metamyelocytes % 0; Myelocytes % 0; Promyelocytes % 0; Reactive Lymphocytes 0
[2022-02-10] MEDS ORDERED: VANCOMYCIN 1GM/250ML 250 ML IV ONE (15:15)
[2022-02-10] MEDS ORDERED: PIPERACILLIN-TAZOB 3.375GM 100 ML IV ONE (15:15)
[2022-02-10 15:25] LABS: Band Neutrophils % (manual) 5; Lymphocytes % (manual) 11 (10.0-50.0); Monocytes % (manual) 4 (0-12)
[2022-02-10 15:35] LABS: Albumin 3.4 g/dL (3.4-5.0); BUN/Creatinine Ratio 14.1; Bilirubin, Total 0.5 mg/dL (0.2-1.0); Calcium 8.6 mg/dL (8.5-10.1); Potassium 3.8 mmol/L (3.5-5.1); Total Protein 7.2 g/dL (6.4-8.2)
[2022-02-10] MEDS ORDERED: Acetam/CODEINE 120mg/12mg per 5mL UD PO ONE (21:30)
[2022-02-10 23:06] VITALS: BP 119/68
[2022-02-10] MEDS ORDERED: ACETAMINOPHEN 325 MG TAB PO ONE ×2 (23:15→23:17)
== END 2022-02-10 23:44 | disposition short-term general hospital (02) ==
LOC: ER 13:53 → EDBD 13:53 → ER 23:19
DX: J18.9 Pneumonia, unspecified organism (principal); Z20.822 Contact with and (suspected) exposure to COVID-19
CPT/HCPCS: 36415; 71045; 80053; 83605; 84484; 85007; 85027; 87040; 87426; 93005; 96365; 96366; 96368; 99285; J2543; J3370; J7030